=== PATIENT | female | born 1970 | race African-American/Black ===

== ENCOUNTER → 2017-06-02 | Outpatient (CLI) | payer BC ==
[~2017-06-02] MED LIST: NS 100 ML IV 100 ML IV ONE
[2017-06-02 10:15] LABS: CRYPTOSPORIDIUM PARVUM ANTIGEN NEGATIVE (NEGATIVE); GIARDIA LAMBLIA ANTIGEN NEGATIVE (NEGATIVE)
--- NOTE | 2017-06-02 11:34 | CT ---
CT abdomen with and without contrast Indication: Epigastric pain Technique: Helical CT images of the abdomen were obtained with and without IV contrast. Reformatted images in the coronal and sagittal planes were also generated for review. Comparison: None Findings: The visualized lung bases are clear. No aggressive osseous lesions are identified. Noncontrast images demonstrate a 1 cm nonobstructing stone within the lower pole of the right kidney . There is a subcentimeter hypoattenuating lesion within the lower pole of the left kidney, which is too small to accurately characterize but likely a cyst. Both kidneys otherwise enhance and excrete contrast symmetrically without evidence of obstruction. The gallbladder is surgically absent. The liver, spleen, pancreas and adrenals are unremarkable. The visualized GI tract, including the appendix is normal. The IVC and minimally calcified abdominal ao rta are unremarkable. A small fat containing umbilical hernia is noted. No free air, free fluid or l ymphadenopathy is identified. Impression: 1. No acute abnormality identified to explain patient's epigastric pain. 2. Nonobstructing right nephrolithiasis, small probable left renal cyst and additional incidental fi ndings, as above. Reported By:
== END | disposition home or self-care (01) | DRG 392 ==
LOC: RAD 08:26
PROVIDERS: ATTEND Internal Medicine Gastroenterology
DX: R10.13 Epigastric pain (principal); R19.5 Other fecal abnormalities; Z87.442 Personal history of urinary calculi
CPT/HCPCS: 74160; 82270; 82705; 87045; 87205; 87328; 87329; 87336; 87427; 87493; 87899; A4222

== ENCOUNTER → 2017-10-30 | Outpatient (CLI) | payer BC ==
--- NOTE | 2017-10-31 15:41 | MG ---
HISTORY: SCREENING Comparison: 09/26/2016 FINDINGS: Bilateral CC and MLO projections of the right and left breast were obtained. Heterogeneously dense f ibroglandular tissue is seen to be present. No significant architectural distortion, mass or cluster ed microcalcifications can be observed to suggest malignancy. No skin thickening or nipple retractio n is appreciated. No pathological lymphadenopathy can be identified. Benign-appearing calcification s scattered throughout the right and left breasts are observed. IMPRESSION: NO RADIOGRAPHIC EVIDENCE OF MALIGNANCY. ACR CATEGORY 2 - benign findings. FOLLOW-UP EXAM 1 YEAR. Diagnostic CAD was utilized and reviewed. * 0 (ZERO) - ASSESSMENT INCOMPLETE; ADDITIONAL IMAGING IS NEEDED. * 1/ (ONE) - NEGATIVE. * 2/II (TWO) - BENIGN FINDINGS. * 3/III (THREE) - PROBABLY BENIGN FINDING; SHORT INTERVAL FOLLOW-UP SUGGESTED. * 4/IV (FOUR) - SUSPICIOUS ABNORMALITY; BIOPSY SHOULD BE CONSIDERED. * 5/V - HIGHLY SUSPICIOUS OF MALIGNANCY; BIOPSY SHOULD BE PERFORMED. A NEGATIVE X-RAY REPORT SHOULD NOT DELAY BIOPSY IF A DOMINANT OR CLINICALLY SUSPICIOUS MASS IS PRESENT; 4 TO 8 PERCENT OF CANCERS ARE NOT IDENTIFIED BY X-RAY. A NEGA TIVE REPORT MAY REINFORCE THE CLINICAL IMPRESSION. ADENOSIS AND DENSE BREASTS MAY OBSCURE AN UNDERLY ING NEOPLASM. Reported By:
== END ==
LOC: RAD 10:31
PROVIDERS: ATTEND Physician Assistant Medical
DX: Z12.31 Encounter for screening mammogram for malignant neoplasm of breast (principal)
CPT/HCPCS: 77067